=== PATIENT | female | born 1965 | race Caucasian/White ===

== ENCOUNTER 2016-12-13 07:56 | Day surgery (SDC) | payer BC ==
--- NOTE | ~2016-12-13 | EGD ---
EGD REPORT [facility] [address] [place] [address] NAME: CHARLEEN JULES : 63 STATUS : [place] [facility] [place] PAT#: [id number] AGE: 51 ADM/REG DATE : 12/13/16 MR#: [id number] REPORT SERV DATE: 12/13/16 DICTATED BY: VIANNEY MCNAMARA DATE: 12/13/16 REPORT STATUS : Draft TRANSCRIBED BY: [employer] DATE: 12/13/16 [facility] Patient Name: Charleen Jules Date of : 1965 Attending MD: VIANNEY MCNAMARA MD Procedure Date No Time: 12/13/2016 Procedure: Upper GI endoscopy Indications: Esophageal reflux Referring MD: IDALMIS CAREY Medicines: Monitored Anesthesia Care Complications: No immediate complications. Procedure: Pre-Anesthesia Assessment: - ASA Grade Assessment: II - A patient with mild systemic disease. After obtaining informed consent, the endoscope was passed under direct vision. Throughout the procedure, the patient's blood pressure, pulse, and oxygen saturations were monitored continuously. The GIF [id number] was introduced through the mouth, and advanced to the second part of duodenum. The upper GI endoscopy was accomplished without difficulty. The patient tolerated the procedure well. Findings: Localized mild erythema was found in the lower third of the esophagus. Biopsies were taken with a cold forceps for histology. Localized mildly erythematous mucosa without bleeding was found in the gastric antrum. Biopsies were taken with a cold forceps for histology. The cardia and gastric fundus were normal on retroflexion. The duodenal bulb and 2nd part of the duodenum were normal. A small hiatus hernia was present. Impression: - Erythema in the lower third of the esophagus. Biopsied. - Erythematous mucosa in the antrum. Biopsied. - Normal duodenal bulb and 2nd part of the duodenum. Recommendation: - Patient has a contact number available for emergencies. The signs and symptoms of potential delayed complications were discussed with the patient. Return to normal activities tomorrow. Written discharge instructions were provided to the patient. - Regular diet. - Continue present medications. - Follow an antireflux regimen. - Return to GI clinic in 2 months. EGD REPORT [address] [address] NAME: CHARLEEN JULES : 63 STATUS : [place] [facility] [place] PAT#: [id number] AGE: 51 ADM/REG DATE : 12/13/16 MR#: [id number] REPORT SERV DATE: 12/13/16 DICTATED BY: VIANNEY MCNAMARA DATE: 12/13/16 REPORT STATUS : Draft TRANSCRIBED BY: [place] DATE: 12/13/16 Procedure Code(s): --- Professional --- 35318, Esophagogastroduodenoscopy, flexible, transoral; with biopsy, single or multiple Diagnosis Code(s): --- Professional --- K22.9, Disease of esophagus, unspecified K31.9, Disease of stomach and duodenum, unspecified K21.9, Gastro-esophageal reflux disease without esophagitis CPT copyright 2013 [employer]. All rights reserved. The codes documented in this report are preliminary and upon arc cutter review may be revised to meet current compliance requirements. VIANNEY MCNAMARA MD 12/13/2016 10:42 AM This report has been signed electronically. Number of Addenda: 0 Note Initiated On: 12/13/2016 10:17 AM Scope Withdrawal Time 0 hours 0 minutes 0 seconds [address] [place] [address]
[~2016-12-13 07:56] MED LIST: ASAB PO; BRISDELLE; BRISDELLE PO; CYMBALTA60 PO; EVAMIST; IMITREX50 PO; INDE120LA PO; NEUR300 PO; PRILOSEC40 MG PO; RELPAX40 MG PO; SUCR PO; ZANAFLEX 4 MG TA4 MG PO; paroxetine
== END 2016-12-13 23:59 | disposition home or self-care (01) ==
LOC: DMU 07:56
PROVIDERS: Internal Medicine Gastroenterology
PROC: 0DB68ZX Excision of Stomach, Via Natural or Artificial Opening Endoscopic, Diagnostic (ICD-10-PCS; 2016-12-13)
PROC: 0DB38ZX Excision of Lower Esophagus, Via Natural or Artificial Opening Endoscopic, Diagnostic (ICD-10-PCS; principal; 2016-12-13 09:30)
DX: K21.9 Gastro-esophageal reflux disease without esophagitis (principal); K22.9 Disease of esophagus, unspecified; K31.9 Disease of stomach and duodenum, unspecified; R13.10 Dysphagia, unspecified; G47.33 Obstructive sleep apnea (adult) (pediatric); M79.7 Fibromyalgia; Z79.899 Other long term (current) drug therapy; Z79.82 Long term (current) use of aspirin; Z88.1 Allergy status to other antibiotic agents; Z91.02 Food additives allergy status
CPT/HCPCS: 88305